=== PATIENT | female | born 1945 | race Caucasian/White ===

== ENCOUNTER 2017-07-20 10:39 | Inpatient (IN) | payer MEDICARE ==
[~2017-07-20] VITALS: Ht 167.6 cm; Wt 134.0 kg
[2017-07-20] MEDS ORDERED: PRAM0.255 PO (13:44)
[2017-07-20] MEDS ORDERED: BUDE10.2 IH (13:45)
[2017-07-20] MEDS ORDERED: MONT10TA9 PO (13:45)
[2017-07-20] MEDS ORDERED: ESCITALOPRAM OX20 MG PO (13:45)
[2017-07-20] MEDS ORDERED: FAMO20TA5 PO (13:45)
[2017-07-20] MEDS ORDERED: ACETAMINOPHEN 325 MG TABLET. PO PRN (14:30)
[2017-07-20] MEDS ORDERED: ONDANSETRON PF 4 MG/2 ML VIAL. IV PRN (14:30)
[2017-07-20] MEDS ORDERED: MORPHINE SULFATE 2 MG/ML DISP.SYRIN. IV PRN (14:30)
[2017-07-20] MEDS ORDERED: PROCHLORPERAZINE 10 MG/2 ML VIAL. IV PRN (14:30)
[2017-07-20] MEDS ORDERED: ZOLPIDEM 5 MG TABLET. PO PRN (14:30)
[2017-07-20] MEDS ORDERED: BISACODYL 10 MG SUPP.RECT. PR PRN (14:30)
[2017-07-20] MEDS ORDERED: oxyCODONE IR 5 MG TABLET PO PRN (14:30)
[2017-07-20] MEDS ORDERED: CALCIUM CARBONATE 500 MG TAB.CHEW PO PRN (14:30)
[2017-07-20] MEDS ORDERED: MAG HYDROX/ALUMINUM HYD/SIMETH 30 ML ORAL.SUSP PO PRN (14:30)
[2017-07-20] MEDS ORDERED: MAGNESIUM HYDROXIDE 2,400 MG/30 ML ORAL.SUSP. PO PRN (14:30)
[2017-07-20] MEDS ORDERED: PROCHLORPERAZINE 25 MG SUPP.RECT. PR PRN (14:30)
[2017-07-20] MEDS: IBUPROFEN 400 MG TABLET. PO PRN (14:40)
[2017-07-20] MEDS: BENZONATATE 100 MG CAPSULE. PO SCH ×2 (14:40→20:43)
[2017-07-20 15:00] VITALS: BP 155/92
[2017-07-20] MEDS ORDERED: methylPREDNISolone SOD SUCC PF 125 MG/2 ML VIAL. IV ONE (15:15)
--- NOTE | 2017-07-20 15:19 | PDOC1 ---
History and Physical Date of Admission Date of Admission DATE: 07/20/17 TIME: 15:15 Identification/Chief Complaint Chief Complaint SOA Problems: Source Source: Caregiver, Chart review, Patient History of Present Illness History of Present Illness pleasant 72 y.o female who is non smoker but has COPD ran out of symbicort 1 month ago,worse in SOA stephanie upon exertion past 3 days,sent by PCP Adrienne Jacobs to be admitted bec of audible wheezing from a distance and possible PNA, Yellowish phlegm, no fevers. She got a shot of IM abx prior to arrival here, Audible wheezing, tachypneic at short phrases, CXR read as no infiltrate,. Requests to be seen by a pulmo. NO known cardiac issues Past Medical History Pulmonary: Bronchitis, COPD Past Surgical History Past Surgical History: No pertinent history Family History Family History: No Significant Social History Smoke: No ALCOHOL: none Drugs: None Current Medications Current Medications Current Medications Famotidine (Pepcid) 20 mg DAILY PO ; Start 07/21/17 at 09:00 Montelukast Sodium (Singulair) 10 mg DAILY PO ; Start 07/21/17 at 09:00 Pramipexole Dihydrochloride (miraPEX) 0.25 mg HS PO ; Start 07/20/17 at 21:00 Non-Formulary Medication 2 puff BID IH ; Start 07/20/17 at 21:00; Status UNV Citalopram Hydrobromide (CeleXA) 40 mg DAILY PO ; Start 07/21/17 at 09:00 Albuterol Sulfate (Ventolin Neb Soln) 2.5 mg RTQID NEB ; Start 07/20/17 at 16: 00; Status Cancel Budesonide (Pulmicort) 0.5 mg RTBID NEB ; Start 07/20/17 at 20:00 Ondansetron HCl (Zofran) 4 mg PRN Q6HRS PRN IV NAUSEA/VOMITING; Start at 14:30 Prochlorperazine Edisylate (Compazine) 10 mg PRN Q6HRS PRN IV NAUSEA/VOMITING; Start 07/20/17 at 14:30 Prochlorperazine (Compazine) 25 mg PRN Q12HR PRN IA NAUSEA/VOMITING; Start at 14:30 Al Hydroxide/Mg Hydroxide (Mylanta Plus Xs) 30 ml PRN Q3HRS PRN PO HEARTBURN / GAS; Start 07/20/17 at 14:30 Calcium Carbonate/ Glycine (Tums) 500 mg PRN Q3HRS PRN PO UPSET STOMACH; Start 07/20/17 at 14:30 Zolpidem Tartrate (Ambien) 5 mg PRN QHS PRN PO INSOMNIA, MAY REPEAT IN 1HR; Start 07/20/17 at 14:30 Oxycodone HCl (Roxicodone) 5 mg PRN Q3HRS PRN PO BREAKTHROUGH PAIN; Start at 14:30 Morphine Sulfate 1 mg PRN Q1HR PRN IV PAIN; Start 07/20/17 at 14:30 Ketorolac Tromethamine (Toradol) 15 mg PRN Q6HRS PRN IV PAIN; Start 07/20/17 at 14:30; Stop 07/25/17 at 14:29 Acetaminophen (Tylenol) 650 mg PRN Q6HRS PRN PO Headaches, Temp > 101.5F; Start 07/20/17 at 14:30 Ibuprofen (Motrin) 400 mg PRN Q6HRS PRN PO MILD PAIN Last administered on 07/20t 14:40; Start 07/20/17 at 14:30 Docusate Sodium (Colace) 100 mg BID PO ; Start 07/20/17 at 21:00 Magnesium Hydroxide (Milk Of Magnesia) 2,400 mg PRN Q12HR PRN PO CONSTIPATION; Start 07/20/17 at 14:30 Bisacodyl (Dulcolax Supp) 10 mg PRN DAILY PRN [place] CONSTIPATION; Start 07/20/17 at 14:30 Enoxaparin Sodium (Lovenox 40mg Syringe) 40 mg Q24H SQ ; Start 07/21/17 at 09: 00 Albuterol/ Ipratropium (Duoneb) 3 ml RTQID NEB ; Start 07/20/17 at 16:00 Benzonatate (Tessalon Perle) 100 mg [id number] PO Last administered on 07/20/17t 14:40; Start 07/20/17 at 15:00 Active Scripts Active Reported Symbicort 160-4.5 Mcg Inhaler (Budesonide/Formoterol Fumarate) 10.2 Gm Hfa.aer.ad 2 Puff IH BID Famotidine 20 Mg Tablet 20 Mg PO DAILY Escitalopram Oxalate 20 Mg Tablet 1 Tab PO DAILY Montelukast Sodium Tablet (Montelukast Sodium) 10 Mg Tablet 1 Tab PO DAILY Mirapex (Pramipexole Di-Hcl) 0.25 Mg Tablet 0.25 Mg PO HS Allergies Allergies: Coded Allergies: No Known Drug Allergies (Unverified , 07/20/17) ROS General: No: Chills, Night Sweats, Fatigue, Malaise, Appetite, Other PSYCHOLOGICAL ROS: No: Anxiety, Behavioral Disorder, Concentration difficultie , Decreased libido, Depression, Disorientation, Hallucinations, Hostility, Irritablity, Memory difficulties, Mood Swings, Obsessive thoughts, Physical abuse, Sexual abuse, Sleep disturbances, Suicidal ideation, Other Eyes: No Blurry vision, No Decreased vision, No Double vision, No Dry eyes, No Excessive tearing, No Eye Pain, No Itchy Eyes, No Loss of vision, No Photophobia , No Scotomata, No Uses contacts, No Uses glasses, No Other HEENT: No: Heacaches, Visual Changes, Hearing change, Nasal congestion, Nasal discharge, Oral lesions, Sinus pain, Sore Throat, Epistaxis, Sneezing, Snoring, Tinnitus, Vertigo, Vocal changes, Other Hematological and Lymphatic: No: Bleeding Problems, Blood Clots, Blood Transfusions, Brusing, Night Sweats, Pallor, Swollen Lymph Nodes, Other Breast: No New/Changing Breast Lumps, No Nipple changes, No Nipple discharge, No Other Respiratory: YES: Cough, Shortness of breath, SOB with excertion, Sputum Changes Cardiovascular: No Chest Pain, No Palpitations, No Orthopnea, No Paroxysmal Noc. Dyspnea, No Edema, No Lt Headedness, No Other Gastrointestinal: No Nausea, No Vomiting, No Abdominal Pain, No Diarrhea, No Constipation, No Melena, No Hematochezia, No Other Genitourinary: No Dysuria, No Frequency, No Incontinence, No Hematuria, No Retention, No Discharge, No Urgency, No Pain, No Flank Pain, No Other, No , No , No , No , No , No , No Musculoskeletal: No Gait Disturbance, No Joint Pain, No Joint Stiffness, No Joint Swelling, No Muscle Pain, No Muscular Weakness, No Pain In:, No Swelling In:, No Other Neurological: No Behavorial Changes, No Bowel/Bladder ControlChng, No Confusion , No Dizziness, No Gait Disturbance, No Headaches, No Impaired Coord/balance, No Memory Loss, No Numbness/Tingling, No Seizures, No Speech Problems, No Tremors, No Visual Changes, No Weakness, No Other Skin: No Dry Skin, No Eczema, No Hair Changes, No Lumps, No Mole Changes, No Mottling, No Nail Changes, No Pruritus, No Rash, No Skin Lesion Changes, No Other, No Acne Physical Exam General: Alert, Oriented X3, Cooperative, No acute distress HEENT: Atraumatic, PERRLA Lungs: Normal air movement, Other (audible wheezes all over) Cardiovascular: S1, S2 Breasts: Normal, Rt breast nml w/o mass, Lt breast nml w/o mass, Nipples normal Abdomen: Normal bowel sounds, Soft, No tenderness, No hepatosplenomegaly, No masses Extremities: No clubbing, No cyanosis, No edema, Normal pulses, No tenderness/ swelling Skin: No rashes, No breakdown, No significant lesion Neuro: Normal gait, Normal speech, Strength at 5/5 X4 ext, Normal tone, Sensation intact, Cranial nerves 3-12 NL, Reflexes 2+ Psych/Mental Status: Mental status NL, Mood NL Vitals Vitals Vital Signs Date Time Temp Pulse Resp B/P (MAP) Pulse Ox O2 Delivery O2 Flow Rate FiO2 07/20/17 13:45 Nasal Cannula 2.0 VTE Prophylaxis Ordered VTE Prophylaxis Devices: Yes VTE Pharmacological Prophylaxi: Yes Assessment/Plan Assessment/Plan 1. COPD exacerbation,severe 2. Acute bronchitis 3. NOn smoker 4. Obesity PLAN: Admit 2 [place] Pulmo consult NEbs, cough med, PT.OT O2 prn Resume home meds Steroids iV Seen at [address] RN SENG LOWERY MD Jul 20, 2017 15:19
[2017-07-20] MEDS: IPRATRPIUM/ALBUTEROL 0.5/2.5MG 3 ML NEBU. NEB SCH ×2 (15:29→19:27)
[2017-07-20] MEDS ORDERED: ALBUTEROL SULFATE 2.5 MG/3 ML NEBU. NEB SCH (16:00)
[2017-07-20] MEDS: AZITHROMYCIN 500 MG in IV NORMAL SALINE 250ML 250 ML IV SCH (16:08)
[2017-07-20] MEDS: guaiFENesin DM 200MG/20MG 10 ML SYRUP PO PRN (16:15)
[2017-07-20] MEDS: KETOROLAC 15 MG/ML VIAL. IV PRN (16:15)
[2017-07-20] MEDS: cefTRIAXone IV Push 1 GM VIAL. IVP SCH (17:36)
[2017-07-20 19:00] VITALS: BP 168/87
[2017-07-20] MEDS: BUDESONIDE 0.5 MG/2 ML NEBU. NEB SCH (19:28)
[2017-07-20] MEDS: DOCUSATE SODIUM 100 MG CAPSULE. PO SCH (20:42)
[2017-07-20] MEDS: PRAMIPEXOLE 0.25 MG TABLET. PO SCH (20:42)
[2017-07-20] MEDS ORDERED: NON FORMULARY ITEM (Budesonide/Formoterol Fumarate (Symbicort 160-4.5 Mcg Inhaler) 2 PUFF) IH SCH (21:00)
[2017-07-20] MEDS: methylPREDNISolone SOD SUCC PF 40 MG/ML VIAL. IV SCH (21:58)
[2017-07-20 23:00] VITALS: BP 155/77
[2017-07-21 03:00] VITALS: BP 152/78
[2017-07-21 04:57] LABS: BASO % 0 % (0-3); EOS % 0 % (0-3); HEMATOCRIT 39.8 % (36.0-47.0); LYMPH # 0.6 x10^3/uL (1.0-4.8); LYMPH % 7 % (24-48); MEAN CORPUSCULAR HEMOGLOBIN 30 pg (25-35); MEAN CORPUSCULAR HGB CONC 33 g/dL (31-37); MEAN CORPUSCULAR VOLUME 91 fL (79-100); MONO % 1 % (0-9); NEUT % 92 % (31-73); PLATELET COUNT 275 x10^3/uL (140-400); RED BLOOD COUNT 4.39 x10^6/uL (3.50-5.40); RED CELL DISTRIBUTION WIDTH 15.1 % (11.5-14.5); WHITE BLOOD COUNT 8.5 x10^3/uL (4.0-11.0)
[2017-07-21 05:13] LABS: CALCIUM 8.9 mg/dL (8.5-10.1); CREATININE 0.9 mg/dL (0.6-1.0); GFR 61.7; POTASSIUM 4.7 mmol/L (3.5-5.1)
[2017-07-21 05:18] LABS: INR 1.1 (0.8-1.1); PROTHROMBIN TIME PATIENT 13.6 SEC (11.7-14.0)
[2017-07-21] MEDS: methylPREDNISolone SOD SUCC PF 40 MG/ML VIAL. IV SCH ×3 (05:45→21:48)
[2017-07-21 06:54] LABS: ANISOCYTOSIS PRESENT; PLT ESTIMATE ADEQUATE (ADEQUATE)
[2017-07-21] MEDS: BUDESONIDE 0.5 MG/2 ML NEBU. NEB SCH ×2 (07:22→19:54)
[2017-07-21] MEDS: IPRATRPIUM/ALBUTEROL 0.5/2.5MG 3 ML NEBU. NEB SCH ×4 (07:22→19:54)
[2017-07-21 07:45] VITALS: BP 160/87
[2017-07-21] MEDS: DOCUSATE SODIUM 100 MG CAPSULE. PO SCH ×2 (07:51→21:48)
[2017-07-21] MEDS: BENZONATATE 100 MG CAPSULE. PO SCH ×3 (07:51→21:48)
[2017-07-21] MEDS: FAMOTIDINE 20 MG TABLET. PO SCH (07:51)
[2017-07-21] MEDS: MONTELUKAST SODIUM 10 MG TABLET. PO SCH (07:51)
[2017-07-21] MEDS: CITALOPRAM 20 MG TABLET. PO SCH (07:51)
[2017-07-21] MEDS: ENOXAPARIN 40 MG/0.4 ML SYRINGE. SQ SCH (07:52)
[2017-07-21] MEDS: KETOROLAC 15 MG/ML VIAL. IV PRN ×2 (07:52→14:11)
[2017-07-21] MEDS ORDERED: FLU VACC QS2017-18 (36MOS+)/PF 0.5 ML SYRINGE. VAX IM ONE (08:00)
[2017-07-21 10:40] VITALS: BP 132/65
--- NOTE | 2017-07-21 11:11 | PDOC ---
PROGRESS NOTES Chief Complaint Chief Complaint 1. COPD exacerbation,severe 2. Acute bronchitis 3. NOn smoker 4. Obesity History of Present Illness History of Present Illness Less wheezy but still audible wheezing even without steth\ NO fevers here but did have at home WBC normal FLu test at office normal CXR was done at office Walked with PT.OT, today, did ok, but HR jumped to 130s NO o2 at home O2 at 2-3 LNC PLAn: CPM Pulmo consulted Check CXR 2 vies today Check sputum cx - though usually low yield Dw her Vitals Vitals Vital Signs Date Time Temp Pulse Resp B/P (MAP) Pulse Ox O2 Delivery O2 Flow Rate FiO2 07/21/17 11:05 Nasal Cannula 2.0 07/21/17 07:45 96.4 104 18 160/87 (111) 92 96.4 Physical Exam General: Alert, Oriented X3, Cooperative, No acute distress Abdomen: Normal bowel sounds, Soft, No tenderness, No hepatosplenomegaly, No masses Extremities: No clubbing, No cyanosis, No edema, Normal pulses, No tenderness/ swelling Skin: No rashes, No breakdown, No significant lesion Labs LABS Laboratory Tests Test 07/21/17 03:50 White Blood Count 8.5 x10^3/uL (4.0-11.0) Red Blood Count 4.39 x10^6/uL (3.50-5.40) Hemoglobin 13.0 g/dL (12.0-15.5) Hematocrit 39.8 % (36.0-47.0) Mean Corpuscular Volume 91 fL (79-100) Mean Corpuscular Hemoglobin 30 pg (25-35) Mean Corpuscular Hemoglobin Concent 33 g/dL (31-37) Red Cell Distribution Width 15.1 % (11.5-14.5) Platelet Count 275 x10^3/uL (140-400) Neutrophils (%) (Auto) 92 % (31-73) Lymphocytes (%) (Auto) 7 % (24-48) Monocytes (%) (Auto) 1 % (0-9) Eosinophils (%) (Auto) 0 % (0-3) Basophils (%) (Auto) 0 % (0-3) Neutrophils # (Auto) 7.8 x10^3uL (1.8-7.7) Lymphocytes # (Auto) 0.6 x10^3/uL (1.0-4.8) Monocytes # (Auto) 0.1 x10^3/uL (0.0-1.1) Eosinophils # (Auto) 0.0 x10^3/uL (0.0-0.7) Basophils # (Auto) 0.0 x10^3/uL (0.0-0.2) Segmented Neutrophils % 84 % (35-66) Band Neutrophils % 3 % (0-9) Lymphocytes % 12 % (24-48) Monocytes % 1 % (0-10) Platelet Estimate Adequate (ADEQUATE) Anisocytosis Present Prothrombin Time 13.6 SEC (11.7-14.0) Prothromb Time International Ratio 1.1 (0.8-1.1) Sodium Level 139 mmol/L (136-145) Potassium Level 4.7 mmol/L (3.5-5.1) Chloride Level 104 mmol/L (98-107) Carbon Dioxide Level 28 mmol/L (21-32) Anion Gap 7 (6-14) Blood Urea Nitrogen 14 mg/dL (7-20) Creatinine 0.9 mg/dL (0.6-1.0) Estimated GFR (Cockcroft-Gault) 61.7 Glucose Level 149 mg/dL (70-99) Calcium Level 8.9 mg/dL (8.5-10.1) Review of Systems Review of Systems soa, no cp, phlegm, no fevers, no abd pain or emesis Comment Review of Relevant I have reviewed the following items kamari (where applicable) has been applied. Labs Laboratory Tests Test 07/21/17 03:50 White Blood Count 8.5 x10^3/uL (4.0-11.0) Red Blood Count 4.39 x10^6/uL (3.50-5.40) Hemoglobin 13.0 g/dL (12.0-15.5) Hematocrit 39.8 % (36.0-47.0) Mean Corpuscular Volume 91 fL (79-100) Mean Corpuscular Hemoglobin 30 pg (25-35) Mean Corpuscular Hemoglobin Concent 33 g/dL (31-37) Red Cell Distribution Width 15.1 % (11.5-14.5) Platelet Count 275 x10^3/uL (140-400) Neutrophils (%) (Auto) 92 % (31-73) Lymphocytes (%) (Auto) 7 % (24-48) Monocytes (%) (Auto) 1 % (0-9) Eosinophils (%) (Auto) 0 % (0-3) Basophils (%) (Auto) 0 % (0-3) Neutrophils # (Auto) 7.8 x10^3uL (1.8-7.7) Lymphocytes # (Auto) 0.6 x10^3/uL (1.0-4.8) Monocytes # (Auto) 0.1 x10^3/uL (0.0-1.1) Eosinophils # (Auto) 0.0 x10^3/uL (0.0-0.7) Basophils # (Auto) 0.0 x10^3/uL (0.0-0.2) Segmented Neutrophils % 84 % (35-66) Band Neutrophils % 3 % (0-9) Lymphocytes % 12 % (24-48) Monocytes % 1 % (0-10) Platelet Estimate Adequate (ADEQUATE) Anisocytosis Present Prothrombin Time 13.6 SEC (11.7-14.0) Prothromb Time International Ratio 1.1 (0.8-1.1) Sodium Level 139 mmol/L (136-145) Potassium Level 4.7 mmol/L (3.5-5.1) Chloride Level 104 mmol/L (98-107) Carbon Dioxide Level 28 mmol/L (21-32) Anion Gap 7 (6-14) Blood Urea Nitrogen 14 mg/dL (7-20) Creatinine 0.9 mg/dL (0.6-1.0) Estimated GFR (Cockcroft-Gault) 61.7 Glucose Level 149 mg/dL (70-99) Calcium Level 8.9 mg/dL (8.5-10.1) Laboratory Tests Test 07/21/17 03:50 White Blood Count 8.5 x10^3/uL (4.0-11.0) Red Blood Count 4.39 x10^6/uL (3.50-5.40) Hemoglobin 13.0 g/dL (12.0-15.5) Hematocrit 39.8 % (36.0-47.0) Mean Corpuscular Volume 91 fL (79-100) Mean Corpuscular Hemoglobin 30 pg (25-35) Mean Corpuscular Hemoglobin Concent 33 g/dL (31-37) Red Cell Distribution Width 15.1 % (11.5-14.5) Platelet Count 275 x10^3/uL (140-400) Neutrophils (%) (Auto) 92 % (31-73) Lymphocytes (%) (Auto) 7 % (24-48) Monocytes (%) (Auto) 1 % (0-9) Eosinophils (%) (Auto) 0 % (0-3) Basophils (%) (Auto) 0 % (0-3) Neutrophils # (Auto) 7.8 x10^3uL (1.8-7.7) Lymphocytes # (Auto) 0.6 x10^3/uL (1.0-4.8) Monocytes # (Auto) 0.1 x10^3/uL (0.0-1.1) Eosinophils # (Auto) 0.0 x10^3/uL (0.0-0.7) Basophils # (Auto) 0.0 x10^3/uL (0.0-0.2) Segmented Neutrophils % 84 % (35-66) Band Neutrophils % 3 % (0-9) Lymphocytes % 12 % (24-48) Monocytes % 1 % (0-10) Platelet Estimate Adequate (ADEQUATE) Anisocytosis Present Prothrombin Time 13.6 SEC (11.7-14.0) Prothromb Time International Ratio 1.1 (0.8-1.1) Sodium Level 139 mmol/L (136-145) Potassium Level 4.7 mmol/L (3.5-5.1) Chloride Level 104 mmol/L (98-107) Carbon Dioxide Level 28 mmol/L (21-32) Anion Gap 7 (6-14) Blood Urea Nitrogen 14 mg/dL (7-20) Creatinine 0.9 mg/dL (0.6-1.0) Estimated GFR (Cockcroft-Gault) 61.7 Glucose Level 149 mg/dL (70-99) Calcium Level 8.9 mg/dL (8.5-10.1) Medications Current Medications Famotidine (Pepcid) 20 mg DAILY PO Last administered on 07/21/17 07:51; Start 07/21/17 at 09:00 Montelukast Sodium (Singulair) 10 mg DAILY PO Last administered on 07/21/17 07:51; Start 07/21/17 at 09:00 Pramipexole Dihydrochloride (miraPEX) 0.25 mg HS PO Last administered on 20:42; Start 07/20/17 at 21:00 Non-Formulary Medication 2 puff BID IH ; Start 07/20/17 at 21:00; Status UNV Citalopram Hydrobromide (CeleXA) 40 mg DAILY PO Last administered on 07:51; Start 07/21/17 at 09:00 Albuterol Sulfate (Ventolin Neb Soln) 2.5 mg RTQID NEB ; Start 07/20/17 at 16: 00; Status Cancel Budesonide (Pulmicort) 0.5 mg RTBID NEB Last administered on 07/21/17 07:22; Start 07/20/17 at 20:00 Ondansetron HCl (Zofran) 4 mg PRN Q6HRS PRN IV NAUSEA/VOMITING; Start at 14:30 Prochlorperazine Edisylate (Compazine) 10 mg PRN Q6HRS PRN IV NAUSEA/VOMITING; Start 07/20/17 at 14:30 Prochlorperazine (Compazine) 25 mg PRN Q12HR PRN IN NAUSEA/VOMITING; Start at 14:30 Al Hydroxide/Mg Hydroxide (Mylanta Plus Xs) 30 ml PRN Q3HRS PRN PO HEARTBURN / GAS; Start 07/20/17 at 14:30 Calcium Carbonate/ Glycine (Tums) 500 mg PRN Q3HRS PRN PO UPSET STOMACH; Start 07/20/17 at 14:30 Zolpidem Tartrate (Ambien) 5 mg PRN QHS PRN PO INSOMNIA, MAY REPEAT IN 1HR; Start 07/20/17 at 14:30 Oxycodone HCl (Roxicodone) 5 mg PRN Q3HRS PRN PO BREAKTHROUGH PAIN; Start at 14:30 Morphine Sulfate 1 mg PRN Q1HR PRN IV PAIN; Start 07/20/17 at 14:30 Ketorolac Tromethamine (Toradol) 15 mg PRN Q6HRS PRN IV PAIN Last administered on 07/21/17 07:52; Start 07/20/17 at 14:30; Stop 07/25/17 at 14:29 Acetaminophen (Tylenol) 650 mg PRN Q6HRS PRN PO Headaches, Temp > 101.5F Last administered on 07/21/17 01:33; Start 07/20/17 at 14:30 Ibuprofen (Motrin) 400 mg PRN Q6HRS PRN PO MILD PAIN Last administered on 07/20 14:40; Start 07/20/17 at 14:30 Docusate Sodium (Colace) 100 mg BID PO Last administered on 07/21/17 07:51; Start 07/20/17 at 21:00 Magnesium Hydroxide (Milk Of Magnesia) 2,400 mg PRN Q12HR PRN PO CONSTIPATION; Start 07/20/17 at 14:30 Bisacodyl (Dulcolax Supp) 10 mg PRN DAILY PRN IN CONSTIPATION; Start 07/20/17 at 14:30 Enoxaparin Sodium (Lovenox 40mg Syringe) 40 mg Q24H SQ Last administered on 07:52; Start 07/21/17 at 09:00 Albuterol/ Ipratropium (Duoneb) 3 ml RTQID NEB Last administered on 07/21/17 11:04; Start 07/20/17 at 16:00 Benzonatate (Tessalon Perle) 100 mg [id number] PO Last administered on 07/21/17 07:51; Start 07/20/17 at 15:00 Guaifenesin (Robitussin Dm) 10 ml PRN Q6HRS PRN PO COUGH Last administered on 07/20/17 16:15; Start 07/20/17 at 15:15 Azithromycin 500 mg/Sodium Chloride 250 ml @ 250 mls/hr Q24H IV Last administered on 07/20/17 16:08; Start 07/20/17 at 16:00 Methylprednisolone Sodium Succinate (SOLU-Medrol 125MG VIAL) 125 mg 1X ONCE IV Last administered on 07/20/17 16:07; Start 07/20/17 at 15:15; Stop at 15:16; Status DC Methylprednisolone Sodium Succinate (SOLU-Medrol 40MG VIAL) 40 mg Q8HRS IV Last administered on 11/22/17at 05:45; Start 07/20/17 at 22:00 Ceftriaxone Sodium 1 gm/ Dextrose 50 ml @ 100 mls/hr Q24H IV ; Start 07/20/17 at 15:15; Status UNV Albuterol Sulfate (Ventolin Neb Soln) 2.5 mg PRN Q2HRS PRN NEB SHORTNESS OF BREATH; Start 07/20/17 at 15:15 Ceftriaxone Sodium (Rocephin) 1 gm Q24H IVP Last administered on 07/20/17t 17: 36; Start 07/20/17 at 16:00 Influenza Virus Vaccine Quadrival (Fluarix Quad [id number] Syringe) 0.5 ml ONCE ONCE VAX IM ; Start 07/21/17 at 08:00; Stop 07/21/17 at 08:01; Status DC Active Scripts Active Reported Symbicort 160-4.5 Mcg Inhaler (Budesonide/Formoterol Fumarate) 10.2 Gm Hfa.aer.ad 2 Puff IH BID Famotidine 20 Mg Tablet 20 Mg PO DAILY Escitalopram Oxalate 20 Mg Tablet 1 Tab PO DAILY Montelukast Sodium Tablet (Montelukast Sodium) 10 Mg Tablet 1 Tab PO DAILY Mirapex (Pramipexole Di-Hcl) 0.25 Mg Tablet 0.25 Mg PO HS Vitals/I & O Vital Sign - Last 24 Hours 07/20/17 07/20/17 07/20/17 07/20/17 13:45 15:00 15:33 19:00 Temp 97.3 98.1 97.3 98.1 Pulse 103 115 Resp 19 20 B/P (MAP) 155/92 (113) 168/87 (114) Pulse Ox 95 93 92 O2 Delivery Nasal Cannula Nasal Cannula Room Air Nasal Cannula O2 Flow Rate 2.0 2.0 07/20/17 07/20/17 07/20/17 07/21/17 19:30 20:00 23:00 03:00 Temp 97.9 96.6 97.9 96.6 Pulse 101 100 Resp 20 20 B/P (MAP) 155/77 (103) 152/78 (102) Pulse Ox 94 90 90 O2 Delivery Nasal Cannula Nasal Cannula Nasal Cannula Nasal Cannula O2 Flow Rate 2.0 2.0 2.0 2.0 07/21/17 07/21/17 07/21/17 07/21/17 07:24 07:45 08:00 11:05 Temp 96.4 96.4 Pulse 104 Resp 18 B/P (MAP) 160/87 (111) Pulse Ox 93 92 O2 Delivery Nasal Cannula Room Air Nasal Cannula Nasal Cannula O2 Flow Rate 2.0 2.0 2.0 Intake and Output 07/20/17 07/20/17 07/21/17 15:00 23:00 07:00 Intake Total 350 ml 200 ml Balance 350 ml 200 ml SENG ARBOLEDA MD Jul 21, 2017 11:11
[2017-07-21] MEDS: guaiFENesin DM 200MG/20MG 10 ML SYRUP PO PRN ×2 (14:11→21:48)
[2017-07-21 14:30] VITALS: BP 162/86
--- NOTE | 2017-07-21 15:20 | RAD ---
2 views of the Chest 07/21/2017 12:49 PM Indication: copd exacerbation Comparison: None available Findings: No pneumothorax or pleural effusion is identified. Low lung volumes are noted which augments the cardiomediastinal silhouette and pulmonary vasculature. Linear opacities are seen left midlung suggestive of scarring or discoid atelectasis. No other focal infiltrate is seen. Post surgical changes in the upper abdomen are noted. Prior vertebral augmentation is seen at T11. Impression: Low lung volumes with probable mild left midlung atelectasis. Otherwise unremarkable chest radiograph.
[2017-07-21] MEDS: cefTRIAXone IV Push 1 GM VIAL. IVP SCH (16:40)
[2017-07-21] MEDS: AZITHROMYCIN 500 MG in IV NORMAL SALINE 250ML 250 ML IV SCH (16:41)
--- NOTE | 2017-07-21 17:19 | PDOC ---
PULMONARY PROGRESS NOTES Vitals Vital Signs Date Time Temp Pulse Resp B/P (MAP) Pulse Ox O2 Delivery O2 Flow Rate FiO2 07/21/17 15:00 Nasal Cannula 2.0 07/21/17 14:30 96.6 105 18 162/86 (111) 94 96.6 Cardiovascular: S1, S2 Labs Laboratory Tests Test 07/21/17 03:50 White Blood Count 8.5 x10^3/uL (4.0-11.0) Red Blood Count 4.39 x10^6/uL (3.50-5.40) Hemoglobin 13.0 g/dL (12.0-15.5) Hematocrit 39.8 % (36.0-47.0) Mean Corpuscular Volume 91 fL (79-100) Mean Corpuscular Hemoglobin 30 pg (25-35) Mean Corpuscular Hemoglobin Concent 33 g/dL (31-37) Red Cell Distribution Width 15.1 % (11.5-14.5) Platelet Count 275 x10^3/uL (140-400) Neutrophils (%) (Auto) 92 % (31-73) Lymphocytes (%) (Auto) 7 % (24-48) Monocytes (%) (Auto) 1 % (0-9) Eosinophils (%) (Auto) 0 % (0-3) Basophils (%) (Auto) 0 % (0-3) Neutrophils # (Auto) 7.8 x10^3uL (1.8-7.7) Lymphocytes # (Auto) 0.6 x10^3/uL (1.0-4.8) Monocytes # (Auto) 0.1 x10^3/uL (0.0-1.1) Eosinophils # (Auto) 0.0 x10^3/uL (0.0-0.7) Basophils # (Auto) 0.0 x10^3/uL (0.0-0.2) Segmented Neutrophils % 84 % (35-66) Band Neutrophils % 3 % (0-9) Lymphocytes % 12 % (24-48) Monocytes % 1 % (0-10) Platelet Estimate Adequate (ADEQUATE) Anisocytosis Present Prothrombin Time 13.6 SEC (11.7-14.0) Prothromb Time International Ratio 1.1 (0.8-1.1) Sodium Level 139 mmol/L (136-145) Potassium Level 4.7 mmol/L (3.5-5.1) Chloride Level 104 mmol/L (98-107) Carbon Dioxide Level 28 mmol/L (21-32) Anion Gap 7 (6-14) Blood Urea Nitrogen 14 mg/dL (7-20) Creatinine 0.9 mg/dL (0.6-1.0) Estimated GFR (Cockcroft-Gault) 61.7 Glucose Level 149 mg/dL (70-99) Calcium Level 8.9 mg/dL (8.5-10.1) Laboratory Tests Test 07/21/17 03:50 White Blood Count 8.5 x10^3/uL (4.0-11.0) Red Blood Count 4.39 x10^6/uL (3.50-5.40) Hemoglobin 13.0 g/dL (12.0-15.5) Hematocrit 39.8 % (36.0-47.0) Mean Corpuscular Volume 91 fL (79-100) Mean Corpuscular Hemoglobin 30 pg (25-35) Mean Corpuscular Hemoglobin Concent 33 g/dL (31-37) Red Cell Distribution Width 15.1 % (11.5-14.5) Platelet Count 275 x10^3/uL (140-400) Neutrophils (%) (Auto) 92 % (31-73) Lymphocytes (%) (Auto) 7 % (24-48) Monocytes (%) (Auto) 1 % (0-9) Eosinophils (%) (Auto) 0 % (0-3) Basophils (%) (Auto) 0 % (0-3) Neutrophils # (Auto) 7.8 x10^3uL (1.8-7.7) Lymphocytes # (Auto) 0.6 x10^3/uL (1.0-4.8) Monocytes # (Auto) 0.1 x10^3/uL (0.0-1.1) Eosinophils # (Auto) 0.0 x10^3/uL (0.0-0.7) Basophils # (Auto) 0.0 x10^3/uL (0.0-0.2) Segmented Neutrophils % 84 % (35-66) Band Neutrophils % 3 % (0-9) Lymphocytes % 12 % (24-48) Monocytes % 1 % (0-10) Platelet Estimate Adequate (ADEQUATE) Anisocytosis Present Prothrombin Time 13.6 SEC (11.7-14.0) Prothromb Time International Ratio 1.1 (0.8-1.1) Sodium Level 139 mmol/L (136-145) Potassium Level 4.7 mmol/L (3.5-5.1) Chloride Level 104 mmol/L (98-107) Carbon Dioxide Level 28 mmol/L (21-32) Anion Gap 7 (6-14) Blood Urea Nitrogen 14 mg/dL (7-20) Creatinine 0.9 mg/dL (0.6-1.0) Estimated GFR (Cockcroft-Gault) 61.7 Glucose Level 149 mg/dL (70-99) Calcium Level 8.9 mg/dL (8.5-10.1) Medications Active Scripts Medications Dose Route/Sig Max Daily Dose Days Date Category Symbicort 160-4.5 Mcg Inhaler (Budesonide/Formoterol Fumarate) 10.2 Gm Hfa.aer.ad 2 Puff IH BID 07/20/17 Reported Famotidine 20 Mg Tablet 20 Mg PO DAILY 07/20/17 Reported Escitalopram Oxalate 20 Mg Tablet 1 Tab PO DAILY 07/20/17 Reported Montelukast Sodium Tablet (Montelukast Sodium) 10 Mg Tablet 1 Tab PO DAILY 07/20/17 Reported Mirapex (Pramipexole Di-Hcl) 0.25 Mg Tablet 0.25 Mg PO HS 07/20/17 Reported Impression . ASTHMA EXACERBATION HILAR FULLNESS TAMIKA SEE ORDERS THANKS LEXI CARRIZALES MD Jul 21, 2017 17:19
[2017-07-21 19:00] VITALS: BP 168/86
[2017-07-21] MEDS ORDERED: LORazepam 0.5 MG TABLET PO PRN (19:15)
[2017-07-21] MEDS: PRAMIPEXOLE 0.25 MG TABLET. PO SCH (21:48)
--- NOTE | 2017-07-21 22:53 | CONS ---
DATE OF CONSULTATION: 07/21/2017 ATTENDING PHYSICIAN: Dr. Ham. REASON FOR CONSULTATION: The patient is seen in pulmonary consultation at the request of Dr. Ham for wheezing and abnormal chest x-ray. HISTORY OF PRESENT ILLNESS: The patient is a 72-year-old that has been utilizing Symbicort for approximately 2 years. She presented 2 years ago with increasing shortness of breath, wheeze. She has been placed on Symbicort for what I presume to be adult-onset asthma. She states that she does well except for 2-3 times a year she has increasing difficulty. At that time, she is treated with prednisone and improves. She was admitted because of increasing shortness of breath and wheezing. Chest x-ray was obtained revealing bilateral hilar fullness. I was asked to see her in consultation. The patient has never smoked. She does not carry a history of asthma as a young adult. She has had some sinusitis in the past and sinus surgery. Never had any allergy testing. She normally does not utilize oxygen at home. PAST MEDICAL HISTORY: Otherwise remarkable for obstructive lung disease undefined, chronic recurrent bronchitis, sinusitis. PAST SURGICAL HISTORY: No recent major surgery. FAMILY HISTORY: No family history of asthma. VACCINATION HISTORY: She is currently not up to date on her flu or pneumonia vaccination. SOCIAL HISTORY: She has never smoked. REVIEW OF SYSTEMS: CONSTITUTIONAL: No fever or chills. EYES: No changes in visual acuity. HEENT: No nasal congestion or sore throat. RESPIRATORY: As indicated above. In addition, she is having some periods of snoring. She awakens unrefreshed from her sleep. Her has noticed some frequent awakenings throughout the night. CARDIOVASCULAR: No chest pain. No pressure. GASTROINTESTINAL: No nausea, vomiting, or diarrhea. GENITOURINARY: Denies any dysuria or frequency. MUSCULOSKELETAL: No localized muscle aches or joint pains. SKIN: No new skin rashes. NEUROLOGIC: No headaches, diplopia or blurred vision. CURRENT MEDICATIONS: List was reviewed. ALLERGIES: No known drug allergies. PHYSICAL EXAMINATION: GENERAL: Morbid obese individual with a body mass index of 47. No respiratory distress, currently on 2 liters of oxygen supplementation. HEENT: Eyes: The sclerae were nonicteric. NECK: Jugular venous distention was not elevated. No lymphadenopathy. CHEST: Full expansion. LUNGS: Both inspiratory and expiratory wheeze with some scattered rhonchi. CARDIOVASCULAR: Regular rate and rhythm with S1, S2, no S3. ABDOMEN: Soft, nontender, nondistended. EXTREMITIES: No clubbing, cyanosis or edema. NEUROLOGIC: The patient was awake, alert, following commands. A detailed neuro exam was not performed. LABORATORY DATA: Reviewed. Chest x-ray was reviewed. IMPRESSION: 1. Acute exacerbation of adult-onset asthma. 2. Acute nonspecific bronchitis. 3. Abnormal x-ray revealing right hilar fullness, suspect mainly due to pulmonary artery enlargement from secondary pulmonary hypertension. 4. Suspect secondary pulmonary hypertension. 5. Clinical presentation compatible with obstructive sleep apnea. 6. Morbid obesity with a body mass index of 47. 7. Reflux. PLAN: 1. Continue current nebulized treatments and steroids. 2. The patient requires outpatient polysomnogram. 3. CT chest to better delineate the hilar fullness. 4. Weight reduction program. 5. Dietary consult. 6. Full pulmonary function testing once the patient's current status improves. 7. Tessalon Perles p.r.n. 8. Avoid caffeinated beverages. 9. DVT prophylaxis. I do appreciate the privilege in sharing in patient's care. LEXI CARRIZALES MD DR: NIKKIE/brian JOB#: [id number] / [id number]
[2017-07-21 23:00] VITALS: BP 144/85
[2017-07-22 03:00] VITALS: BP 165/86
[2017-07-22] MEDS: methylPREDNISolone SOD SUCC PF 40 MG/ML VIAL. IV SCH (05:37)
[2017-07-22 07:00] VITALS: BP 144/77
[2017-07-22] MEDS: BUDESONIDE 0.5 MG/2 ML NEBU. NEB SCH ×2 (07:19→18:58)
[2017-07-22] MEDS: IPRATRPIUM/ALBUTEROL 0.5/2.5MG 3 ML NEBU. NEB SCH ×4 (07:19→18:58)
[2017-07-22] MEDS ORDERED: cloNIDine HCL 0.1 MG TABLET PO PRN (08:00)
[2017-07-22] MEDS ORDERED: IOHEXOL 300 MG/ML 100ML VIAL. IV ONE (08:45)
[2017-07-22] MEDS ORDERED: CONTRAST GIVEN MC PRN (08:45)
--- NOTE | 2017-07-22 09:02 | PDOC ---
PROGRESS NOTES Chief Complaint Chief Complaint 1. COPD exacerbation,severe 2. Acute bronchitis 3. NOn smoker 4. Obesity History of Present Illness History of Present Illness Wheezy still BUt thinks she is getting better CXR reviewed, atelectasis but no definite infiltrate PLAN: CT chest oredered by pulmo I am inclined to inc steroid dose to 60 iV q8 bec of still wheezing She does want to go home tmr Vitals Vitals Vital Signs Date Time Temp Pulse Resp B/P (MAP) Pulse Ox O2 Delivery O2 Flow Rate FiO2 07/22/17 07:23 96 Nasal Cannula 2.0 07/22/17 07:00 97.7 95 18 144/77 (99) 97.7 Physical Exam General: Alert, Oriented X3, Cooperative, No acute distress Abdomen: Normal bowel sounds, Soft, No tenderness, No hepatosplenomegaly, No masses Extremities: No clubbing, No cyanosis, No edema, Normal pulses, No tenderness/ swelling Skin: No rashes, No breakdown, No significant lesion Review of Systems Review of Systems soa, phlegm, no cp, emesis, diarrhea or abd pain Comment Review of Relevant I have reviewed the following items kamari (where applicable) has been applied. Labs Laboratory Tests Test 07/21/17 03:50 White Blood Count 8.5 x10^3/uL (4.0-11.0) Red Blood Count 4.39 x10^6/uL (3.50-5.40) Hemoglobin 13.0 g/dL (12.0-15.5) Hematocrit 39.8 % (36.0-47.0) Mean Corpuscular Volume 91 fL (79-100) Mean Corpuscular Hemoglobin 30 pg (25-35) Mean Corpuscular Hemoglobin Concent 33 g/dL (31-37) Red Cell Distribution Width 15.1 % (11.5-14.5) Platelet Count 275 x10^3/uL (140-400) Neutrophils (%) (Auto) 92 % (31-73) Lymphocytes (%) (Auto) 7 % (24-48) Monocytes (%) (Auto) 1 % (0-9) Eosinophils (%) (Auto) 0 % (0-3) Basophils (%) (Auto) 0 % (0-3) Neutrophils # (Auto) 7.8 x10^3uL (1.8-7.7) Lymphocytes # (Auto) 0.6 x10^3/uL (1.0-4.8) Monocytes # (Auto) 0.1 x10^3/uL (0.0-1.1) Eosinophils # (Auto) 0.0 x10^3/uL (0.0-0.7) Basophils # (Auto) 0.0 x10^3/uL (0.0-0.2) Segmented Neutrophils % 84 % (35-66) Band Neutrophils % 3 % (0-9) Lymphocytes % 12 % (24-48) Monocytes % 1 % (0-10) Platelet Estimate Adequate (ADEQUATE) Anisocytosis Present Prothrombin Time 13.6 SEC (11.7-14.0) Prothromb Time International Ratio 1.1 (0.8-1.1) Sodium Level 139 mmol/L (136-145) Potassium Level 4.7 mmol/L (3.5-5.1) Chloride Level 104 mmol/L (98-107) Carbon Dioxide Level 28 mmol/L (21-32) Anion Gap 7 (6-14) Blood Urea Nitrogen 14 mg/dL (7-20) Creatinine 0.9 mg/dL (0.6-1.0) Estimated GFR (Cockcroft-Gault) 61.7 Glucose Level 149 mg/dL (70-99) Calcium Level 8.9 mg/dL (8.5-10.1) Medications Current Medications Famotidine (Pepcid) 20 mg DAILY PO Last administered on 07/21/17 07:51; Start 07/21/17 at 09:00 Montelukast Sodium (Singulair) 10 mg DAILY PO Last administered on 07/21/17 07:51; Start 07/21/17 at 09:00 Pramipexole Dihydrochloride (miraPEX) 0.25 mg HS PO Last administered on 21:48; Start 07/20/17 at 21:00 Non-Formulary Medication 2 puff BID IH ; Start 07/20/17 at 21:00; Status UNV Citalopram Hydrobromide (CeleXA) 40 mg DAILY PO Last administered on 07:51; Start 07/21/17 at 09:00 Albuterol Sulfate (Ventolin Neb Soln) 2.5 mg RTQID NEB ; Start 07/20/17 at 16: 00; Status Cancel Budesonide (Pulmicort) 0.5 mg RTBID NEB Last administered on 07/22/17 07:19; Start 07/20/17 at 20:00 Ondansetron HCl (Zofran) 4 mg PRN Q6HRS PRN IV NAUSEA/VOMITING; Start at 14:30 Prochlorperazine Edisylate (Compazine) 10 mg PRN Q6HRS PRN IV NAUSEA/VOMITING; Start 07/20/17 at 14:30 Prochlorperazine (Compazine) 25 mg PRN Q12HR PRN [place] NAUSEA/VOMITING; Start at 14:30 Al Hydroxide/Mg Hydroxide (Mylanta Plus Xs) 30 ml PRN Q3HRS PRN PO HEARTBURN / GAS; Start 07/20/17 at 14:30 Calcium Carbonate/ Glycine (Tums) 500 mg PRN Q3HRS PRN PO UPSET STOMACH; Start 07/20/17 at 14:30 Zolpidem Tartrate (Ambien) 5 mg PRN QHS PRN PO INSOMNIA, MAY REPEAT IN 1HR; Start 07/20/17 at 14:30 Oxycodone HCl (Roxicodone) 5 mg PRN Q3HRS PRN PO BREAKTHROUGH PAIN; Start at 14:30 Morphine Sulfate 1 mg PRN Q1HR PRN IV PAIN; Start 07/20/17 at 14:30 Ketorolac Tromethamine (Toradol) 15 mg PRN Q6HRS PRN IV PAIN Last administered on 07/21/17 14:11; Start 07/20/17 at 14:30; Stop 07/25/17 at 14:29 Acetaminophen (Tylenol) 650 mg PRN Q6HRS PRN PO Headaches, Temp > 101.5F Last administered on 07/21/17 01:33; Start 07/20/17 at 14:30 Ibuprofen (Motrin) 400 mg PRN Q6HRS PRN PO MILD PAIN Last administered on 07/20 14:40; Start 07/20/17 at 14:30 Docusate Sodium (Colace) 100 mg BID PO Last administered on 07/21/17 21:48; Start 07/20/17 at 21:00 Magnesium Hydroxide (Milk Of Magnesia) 2,400 mg PRN Q12HR PRN PO CONSTIPATION; Start 07/20/17 at 14:30 Bisacodyl (Dulcolax Supp) 10 mg PRN DAILY PRN [place] CONSTIPATION; Start 07/20/17 at 14:30 Enoxaparin Sodium (Lovenox 40mg Syringe) 40 mg Q24H SQ Last administered on 07:52; Start 07/21/17 at 09:00 Albuterol/ Ipratropium (Duoneb) 3 ml RTQID NEB Last administered on 07/22/17 07:19; Start 07/20/17 at 16:00 Benzonatate (Tessalon Perle) 100 mg [id number] PO Last administered on 07/21/17 21:48; Start 07/20/17 at 15:00 Guaifenesin (Robitussin Dm) 10 ml PRN Q6HRS PRN PO COUGH Last administered on 07/21/17 21:48; Start 07/20/17 at 15:15 Azithromycin 500 mg/Sodium Chloride 250 ml @ 250 mls/hr Q24H IV Last administered on 07/21/17 16:41; Start 07/20/17 at 16:00; Stop 07/22/17 at 05 :00; Status DC Methylprednisolone Sodium Succinate (SOLU-Medrol 125MG VIAL) 125 mg 1X ONCE IV Last administered on 07/20/17 16:07; Start 07/20/17 at 15:15; Stop at 15:16; Status DC Methylprednisolone Sodium Succinate (SOLU-Medrol 40MG VIAL) 40 mg Q8HRS IV Last administered on 07/22/17 05:37; Start 07/20/17 at 22:00 Ceftriaxone Sodium 1 gm/ Dextrose 50 ml @ 100 mls/hr Q24H IV ; Start 07/20/17 at 15:15; Status UNV Albuterol Sulfate (Ventolin Neb Soln) 2.5 mg PRN Q2HRS PRN NEB SHORTNESS OF BREATH; Start 07/20/17 at 15:15 Ceftriaxone Sodium (Rocephin) 1 gm Q24H IVP Last administered on 07/21/17 16: 40; Start 07/20/17 at 16:00 Influenza Virus Vaccine Quadrival (Fluarix Quad [id number] Syringe) 0.5 ml ONCE ONCE VAX IM ; Start 07/21/17 at 08:00; Stop 07/21/17 at 08:01; Status DC Lorazepam (Ativan) 0.5 mg PRN 1X PRN PO ANXIETY / AGITATION; Start 07/21/17 at 19:15 Azithromycin (Zithromax) 500 mg DAILY PO ; Start 07/22/17 at 09:00 Clonidine HCl (Catapres) 0.1 mg PRN Q1HR PRN PO HYPERTENSION, SEE COMMENTS; Start 07/22/17 at 08:00 Iohexol (Omnipaque 300 Mg/ml) 75 ml 1X ONCE IV Last administered on t 08:54; Start 07/22/17 at 08:45; Stop 07/22/17 at 08:46; Status DC Info (Do NOT chart on this entry -- for MONITORING) 1 each PRN DAILY PRN MC SEE COMMENTS; Start 07/22/17 at 08:45; Stop 07/24/17 at 08:44 Active Scripts Active Reported Symbicort 160-4.5 Mcg Inhaler (Budesonide/Formoterol Fumarate) 10.2 Gm Hfa.aer.ad 2 Puff IH BID Famotidine 20 Mg Tablet 20 Mg PO DAILY Escitalopram Oxalate 20 Mg Tablet 1 Tab PO DAILY Montelukast Sodium Tablet (Montelukast Sodium) 10 Mg Tablet 1 Tab PO DAILY Mirapex (Pramipexole Di-Hcl) 0.25 Mg Tablet 0.25 Mg PO HS Vitals/I & O Vital Sign - Last 24 Hours 07/21/17 07/21/17 07/21/17 07/21/17 10:40 11:05 14:30 15:00 Temp 96.1 96.6 96.1 96.6 Pulse 99 105 Resp 18 18 B/P (MAP) 132/65 (87) 162/86 (111) Pulse Ox 92 94 O2 Delivery Nasal Cannula Nasal Cannula Nasal Cannula Nasal Cannula O2 Flow Rate 2.0 2.0 2.0 2.0 07/21/17 07/21/17 07/21/17 07/21/17 19:00 19:51 20:00 23:00 Temp 97.5 96.7 97.5 96.7 Pulse 109 115 Resp 22 22 B/P (MAP) 168/86 (113) 144/85 (104) Pulse Ox 91 92 O2 Delivery Nasal Cannula Nasal Cannula Nasal Cannula Nasal Cannula O2 Flow Rate 2.0 2.0 2.0 2.0 07/22/17 07/22/17 07/22/17 07/22/17 03:00 07:00 07:22 07:23 Temp 97.9 97.7 97.9 97.7 Pulse 90 95 Resp 18 B/P (MAP) 165/86 (112) 144/77 (99) Pulse Ox 94 96 96 96 O2 Delivery Nasal Cannula Room Air Nasal Cannula Nasal Cannula O2 Flow Rate 2.0 2.0 2.0 Intake and Output 07/21/17 07/21/17 07/22/17 15:00 23:00 07:00 Intake Total 480 ml 430 ml 280 ml Balance 480 ml 430 ml 280 ml SENG ARBOLEDA MD Jul 22, 2017 09:02
--- NOTE | 2017-07-22 09:36 | RAD ---
CT CHEST W/CONTRAST History:Hilar mass Technique: After administration of intravenous contrast, CT imaging was performed of the chest, multiplanar reconstruction images submitted. Exposure: One or more of the following individualized dose reduction techniques were utilized for this exam: 1. Automated exposure control.2. Adjustment of the mA and/or KV according to patient size.3. Use of iterative reconstruction technique.. Contrast: 75 cc Omnipaque 300 Comparison: None other than chest radiograph 07/21/2017 Findings:There is some motion degradation. There is no pneumothorax or abnormal pericardial or pleural fluid. Thoracic aortic caliber is within normal limits without intraluminal flap. There is mass or goiter of the left thyroid gland with intrathoracic extent with deviation of the trachea to the right, measuring on the order of 3.9 cm transverse x 4.1 cm AP by at least 6 cm CC, superior extent not fully included. No significantly enlarged mediastinal nodes are otherwise identified. Right main pulmonary artery is dilated up to 3.6 cm. Exam does not accurately evaluate for pulmonary embolic disease, no embolism identified in the central pulmonary arteries. There is some linear atelectasis bilaterally greater on the right. No significantly enlarged hilar nodes are identified. Appearance of patchy mild ground glass density of the hemithoraces may be accentuated by motion. There has been vertebroplasty at T11. There are multiple clips about the stomach. There is cholelithiasis. Small 0.8 cm hypodense lesion of the visualized right lobe of liver is too small otherwise accurate characterize. Impression: 1.No hilar mass is identified, appearance of right hilar prominence on radiograph probably due to prominent right pulmonary artery. 2. There is left thyroid mass or goiter with intrathoracic extent, deviation of the trachea to the right. 3. There is cholelithiasis. 4. There is atelectasis bilaterally. 5. Small hypodense lesion right lobe liver is too small to otherwise accurately characterize.
[2017-07-22 11:00] VITALS: BP 154/80
[2017-07-22] MEDS: BENZONATATE 100 MG CAPSULE. PO SCH ×3 (12:12→20:47)
[2017-07-22] MEDS: FAMOTIDINE 20 MG TABLET. PO SCH (12:12)
[2017-07-22] MEDS: DOCUSATE SODIUM 100 MG CAPSULE. PO SCH ×2 (12:12→20:47)
[2017-07-22] MEDS: CITALOPRAM 20 MG TABLET. PO SCH (12:12)
[2017-07-22] MEDS: MONTELUKAST SODIUM 10 MG TABLET. PO SCH (12:12)
[2017-07-22] MEDS: ENOXAPARIN 40 MG/0.4 ML SYRINGE. SQ SCH ×2 (12:13→20:47)
[2017-07-22] MEDS: AZITHROMYCIN 250 MG TABLET. PO SCH (12:13)
[2017-07-22] MEDS: methylPREDNISolone SOD SUCC PF 125 MG/2 ML VIAL. IV SCH ×2 (13:24→21:41)
[2017-07-22] MEDS: IBUPROFEN 400 MG TABLET. PO PRN (13:53)
[2017-07-22 15:00] VITALS: BP 167/79
--- NOTE | 2017-07-22 15:09 | PDOC ---
PULMONARY PROGRESS NOTES Subjective PT WITH LESS WHEEZE Vitals Vital Signs Date Time Temp Pulse Resp B/P (MAP) Pulse Ox O2 Delivery O2 Flow Rate FiO2 07/22/17 11:23 Nasal Cannula 2.0 07/22/17 11:00 97.5 117 18 154/80 (104) 90 97.5 ROS: No Nausea, No Chest Pain, No Abdominal Pain, No Increase Cough Lungs: Wheezing Cardiovascular: S1, S2 Abdomen: Soft Neuro Exam: Alert Extremities: No Edema Skin: Warm Labs Laboratory Tests Test 07/21/17 03:50 White Blood Count 8.5 x10^3/uL (4.0-11.0) Red Blood Count 4.39 x10^6/uL (3.50-5.40) Hemoglobin 13.0 g/dL (12.0-15.5) Hematocrit 39.8 % (36.0-47.0) Mean Corpuscular Volume 91 fL (79-100) Mean Corpuscular Hemoglobin 30 pg (25-35) Mean Corpuscular Hemoglobin Concent 33 g/dL (31-37) Red Cell Distribution Width 15.1 % (11.5-14.5) Platelet Count 275 x10^3/uL (140-400) Neutrophils (%) (Auto) 92 % (31-73) Lymphocytes (%) (Auto) 7 % (24-48) Monocytes (%) (Auto) 1 % (0-9) Eosinophils (%) (Auto) 0 % (0-3) Basophils (%) (Auto) 0 % (0-3) Neutrophils # (Auto) 7.8 x10^3uL (1.8-7.7) Lymphocytes # (Auto) 0.6 x10^3/uL (1.0-4.8) Monocytes # (Auto) 0.1 x10^3/uL (0.0-1.1) Eosinophils # (Auto) 0.0 x10^3/uL (0.0-0.7) Basophils # (Auto) 0.0 x10^3/uL (0.0-0.2) Segmented Neutrophils % 84 % (35-66) Band Neutrophils % 3 % (0-9) Lymphocytes % 12 % (24-48) Monocytes % 1 % (0-10) Platelet Estimate Adequate (ADEQUATE) Anisocytosis Present Prothrombin Time 13.6 SEC (11.7-14.0) Prothromb Time International Ratio 1.1 (0.8-1.1) Sodium Level 139 mmol/L (136-145) Potassium Level 4.7 mmol/L (3.5-5.1) Chloride Level 104 mmol/L (98-107) Carbon Dioxide Level 28 mmol/L (21-32) Anion Gap 7 (6-14) Blood Urea Nitrogen 14 mg/dL (7-20) Creatinine 0.9 mg/dL (0.6-1.0) Estimated GFR (Cockcroft-Gault) 61.7 Glucose Level 149 mg/dL (70-99) Calcium Level 8.9 mg/dL (8.5-10.1) Medications Active Scripts Medications Dose Route/Sig Max Daily Dose Days Date Category Symbicort 160-4.5 Mcg Inhaler (Budesonide/Formoterol Fumarate) 10.2 Gm Hfa.aer.ad 2 Puff IH BID 07/20/17 Reported Famotidine 20 Mg Tablet 20 Mg PO DAILY 07/20/17 Reported Escitalopram Oxalate 20 Mg Tablet 1 Tab PO DAILY 07/20/17 Reported Montelukast Sodium Tablet (Montelukast Sodium) 10 Mg Tablet 1 Tab PO DAILY 07/20/17 Reported Mirapex (Pramipexole Di-Hcl) 0.25 Mg Tablet 0.25 Mg PO HS 07/20/17 Reported Impression . 1. Acute exacerbation of adult-onset asthma. 2. Acute nonspecific bronchitis. 3. Abnormal x-ray revealing right hilar fullness, suspect mainly due to pulmonary artery enlargement from secondary pulmonary hypertension. 4. Suspect secondary pulmonary hypertension. 5. Clinical presentation compatible with obstructive sleep apnea. 6. Morbid obesity with a body mass index of 47. 7. Reflux. CT CHEST 1.No hilar mass is identified, appearance of right hilar prominence on radiograph probably due to prominent right pulmonary artery. 2. There is left thyroid mass or goiter with intrathoracic extent, deviation of the trachea to the right. 3. There is cholelithiasis. 4. There is atelectasis bilaterally. 5. Small hypodense lesion right lobe liver is too small to otherwise accurately characterize. Plan . POSSIBLE D/C IN AM FOLLOW UP IN MY OFFICE OUTPT SLEEP STUDY 1. Continue current nebulized treatments and steroids. 2. The patient requires outpatient polysomnogram. 3. CT chest report noted 4. Weight reduction program. 5. Dietary consult. 6. Full pulmonary function testing once the patient's current status improves. 7. Amber kelly.[email or web address]. 8. Avoid caffeinated beverages. 9. DVT prophylaxis. LEXI CARRIZALES MD Jul 22, 2017 15:09
[2017-07-22] MEDS: ALBUTEROL SULFATE 2.5 MG/3 ML NEBU. NEB PRN ×2 (16:57→21:27)
[2017-07-22] MEDS: cefTRIAXone IV Push 1 GM VIAL. IVP SCH (17:58)
[2017-07-22 19:00] VITALS: BP 155/58
[2017-07-22] MEDS: guaiFENesin DM 200MG/20MG 10 ML SYRUP PO PRN (20:47)
[2017-07-22] MEDS: PRAMIPEXOLE 0.25 MG TABLET. PO SCH (20:47)
[2017-07-22 23:00] VITALS: BP 177/87
[2017-07-23 03:00] VITALS: BP 132/65
[2017-07-23] MEDS: methylPREDNISolone SOD SUCC PF 125 MG/2 ML VIAL. IV SCH ×2 (05:23→14:00)
[2017-07-23 07:00] VITALS: BP 132/97
[2017-07-23] MEDS: IPRATRPIUM/ALBUTEROL 0.5/2.5MG 3 ML NEBU. NEB SCH ×2 (07:33→10:43)
[2017-07-23] MEDS: BUDESONIDE 0.5 MG/2 ML NEBU. NEB SCH (07:33)
[2017-07-23] MEDS: AZITHROMYCIN 250 MG TABLET. PO SCH (08:32)
[2017-07-23] MEDS: CITALOPRAM 20 MG TABLET. PO SCH (08:33)
[2017-07-23] MEDS: DOCUSATE SODIUM 100 MG CAPSULE. PO SCH (08:33)
[2017-07-23] MEDS: FAMOTIDINE 20 MG TABLET. PO SCH (08:33)
[2017-07-23] MEDS: MONTELUKAST SODIUM 10 MG TABLET. PO SCH (08:33)
[2017-07-23] MEDS: BENZONATATE 100 MG CAPSULE. PO SCH ×2 (08:33→14:09)
[2017-07-23] MEDS: ENOXAPARIN 40 MG/0.4 ML SYRINGE. SQ SCH (08:33)
[2017-07-23] MEDS ORDERED: DOXY100C14 PO (10:26)
[2017-07-23] MEDS ORDERED: BENZ100C PO (10:26)
[2017-07-23] MEDS ORDERED: BUDE0.5A3 NEB (10:26)
--- NOTE | 2017-07-23 10:30 | PDOC3 ---
Discharge Summary Visit Information Date of Admission: Jul 18, 2017 Date of Discharge: Jul 23, 2017 Admitting Diagnosis Comment: 1. COPD exacerbation,severe 2. Acute bronchitis 3. NOn smoker 4. Obesity Brief Hospital Course Allergies Allergies Coded Allergies Type Severity Reaction Last Updated Verified No Known Drug Allergies 07/20/17 No Vital Signs Vital Signs Date Time Temp Pulse Resp B/P (MAP) Pulse Ox O2 Delivery O2 Flow Rate FiO2 07/23/17 08:00 Nasal Cannula 2.0 07/23/17 07:34 97 07/23/17 07:00 98.4 91 18 132/97 (109) 98.4 Brief Hospital Course Ms. Penaloza is a 72 old obese female, very pleasant was admitted for severe COPD exacerbation - sent in by her PCP from the office to our ER, She was wheezing very badly audible even without the aide of a steth, She was co managed with pulmo, on pulmicort, steroids, nebs, cough med, NO fevers, BC neg,. no leukocytosis, flu neg,. NO PNA on CXR, CT shows no hilar mass but prominent PA known likely from PULM HTN sec to underlying TAMIKA undiagnosed, Advised OP pFTs rpt and polysomnogram,. 6 MW to be done prior to dc. Will await pulmo rounds, but likely clear to go hoem today, no pT needs All inhalers etc written for her COnsulT; pulmo Seen and examined d c 34 mins> 50% educn and counselling Discharge Information Condition at Discharge: Improved, Stable Disposition/Orders: D/C to Home Scheduled Budesonide/Formoterol Fumarate (Symbicort 160-4.5 Mcg Inhaler), 2 PUFF IH BID, ( Reported) Escitalopram Oxalate (Escitalopram Oxalate), 1 TAB PO DAILY, (Reported) Famotidine (Famotidine), 20 MG PO DAILY, (Reported) Montelukast Sodium (Montelukast Sodium Tablet), 1 TAB PO DAILY, (Reported) Pramipexole Di-Hcl (Mirapex), 0.25 MG PO HS, (Reported) SENG ARBOLEDA MD Jul 23, 2017 10:30
[2017-07-23 11:00] VITALS: BP 148/90
[2017-07-23] MEDS: IBUPROFEN 400 MG TABLET. PO PRN (14:09)
== END 2017-07-23 14:40 | disposition home or self-care (01) | DRG 189 ==
LOC: 5 NORTH 13:12
PROVIDERS: ADMIT Internal Medicine; ATTEND Internal Medicine
DX: J96.00 Acute respiratory failure, unspecified whether with hypoxia or hypercapnia (principal); I27.20 Pulmonary hypertension, unspecified; J44.0 Chronic obstructive pulmonary disease with (acute) lower respiratory infection; J45.901 Unspecified asthma with (acute) exacerbation; E66.01 Morbid (severe) obesity due to excess calories; J44.1 Chronic obstructive pulmonary disease with (acute) exacerbation; Z68.42 Body mass index [BMI] 45.0-49.9, adult; J20.9 Acute bronchitis, unspecified; G47.33 Obstructive sleep apnea (adult) (pediatric); K21.9 Gastro-esophageal reflux disease without esophagitis
CPT/HCPCS: 36415; 71020; 71260; 80048; 85007; 85025; 85610; 87070; 87205; 90686; 94250; 94640; 94760; J0456; J0696; J1650; J1885; J2920; J2930; J7050; J7613; J7620; J7626; Q0144; Q9967; J7030